=== PATIENT | female | born 1935 | race Caucasian/White ===

== ENCOUNTER 2017-09-26 19:20 | Inpatient (IN) | payer MEDICARE, MEDICAID ==
--- NOTE | 2017-09-26 20:14 | C.PDOC ---
History Of Present Illness Patient presents to the ER for a complaint of left knee pain that has been worsening for some time. Patient saw PMD same complaint who send her to the ER for evaluation of possible DVT. Denies chest pain, SOB, fever, or chills. Time Seen by Provider: 09/26/17 20:14 Chief Complaint (Nursing): Abnormal Labs History Per: Patient History/Exam Limitations: no limitations Onset/Duration Of Symptoms: Hrs Current Symptoms Are (Timing): Still Present Recent travel outside of the [place]: No Past Medical History Reviewed: Historical Data, Nursing Documentation, Vital Signs Vital Signs: Last Vital Signs Temp 98.1 F 09/26/17 19:38 Pulse 74 09/26/17 19:38 Resp 16 09/26/17 19:38 BP 145/74 09/26/17 19:38 Pulse Ox 97 09/26/17 21:53 - Medical History PMH: CHF, Emphysema, HTN, Hypercholesterolemia Surgical History: No Surg Hx Family History: States: Unknown Family Hx - Social History Hx Alcohol Use: No Hx Substance Use: No - Immunization History Hx Influenza Vaccination: Yes Hx Pneumococcal Vaccination: Yes Review Of Systems Constitutional: Negative for: Fever, Chills Cardiovascular: Negative for: Chest Pain Respiratory: Negative for: Shortness of Breath Gastrointestinal: Negative for: Nausea, Vomiting Genitourinary: Negative for: Dysuria Musculoskeletal: Positive for: Leg Pain (Left knee) Skin: Negative for: Rash Neurological: Negative for: Numbness Psych: Negative for: Anxiety Physical Exam - Physical Exam Appears: Non-toxic, No Acute Distress Skin: Warm, Dry Head: Normacephalic Eye(s): bilateral: Normal Inspection Oral Mucosa: Moist Neck: Supple Chest: Symmetrical Cardiovascular: Rhythm Regular Respiratory: No Rales, No Rhonchi, No Wheezing Back: Normal Inspection Extremity: Tenderness (Left knee to palpation), No Calf Tenderness, No Deformity , Swelling (Mild to left knee), Other (Mild crepitus felt on active/passive extension and flexion) Extremity: Right: Limited ROM To Joint (knee due to pain), Bilateral: Atraumatic Pulses: Left Femoral: Normal, Right Femoral: Normal, Left Dorsalis Pedis: Normal , Right Dorsalis Pedis: Normal Neurological/Psych: Oriented x3, Normal Speech, Normal Cognition Gait: With Assistance ED Course And Treatment - Laboratory Results Result Diagrams: 09/26/17 20:40 09/26/17 20:40 ECG: Interpreted By Me, Viewed By Me ECG Rhythm: Sinus Rhythm (74), Nonspecific Changes O2 Sat by Pulse Oximetry: 97 (room air) Pulse Ox Interpretation: Normal - Radiology CXR: Interpreted by Me, Viewed By Me CXR Interpretation: Yes: Cardiomegaly. No: Infiltrates, Fracture, Pnemothorax Progress Note: Blood work, EKG, urinalysis, and CXR ordered. Lovenox administered. Disposition Discussed With : Tutu Zhang Comment: accepted the pt on his service and took over the care at 9:55PM Doctor Will See Patient In The: Hospital Counseled Patient/Family Regarding: Studies Performed, Diagnosis - Disposition Disposition: HOSPITALIZED Disposition Time: 20:14 Condition: FAIR Forms: [facility] (Romanian) - POA Present On Arrival: Poor Glycemic Control - Clinical Impression Clinical Impression: Knee pain, right, Hyperglycemia, Ambulatory dysfunction - Scribe Statement The provider has reviewed the documentation as recorded by the Scribzo Phillips All medical record entries made by the Scribe were at my direction and personally dictated by me. I have reviewed the chart and agree that the record accurately reflects my personal performance of the history, physical exam, medical decision making, and the department course for this patient. I have also personally directed, reviewed, and agree with the discharge instructions and disposition. Decision To Admit - Pt Status Changed To: Hospital Disposition Of: Inpatient - Admit Certification Admit to Inpatient:: After my assessment, the patient will require hospitalization for at least two midnights. This is because of the severity of symptoms shown, intensity of services needed, and/or the medical risk in this patient being treated as an outpatient. - InPatient: Physician Admission Certification: I certify that this patient requires 2 or more midnights of care for the following reason:: After my assessment, the patient will require hospitalization for at least two midnights. This is because of the severity of symptoms shown, intensity of services needed, and/or the medical risk in this patient being treated as an outpatient. - . Bed Request Type: Regular Admitting Physician: Tutu Zhang Patient Diagnosis: Knee pain, right, Hyperglycemia, Ambulatory dysfunction
[2017-09-26] MEDS ORDERED: Enoxaparin 40 mg Syringe SC STA (20:28)
[2017-09-26] MEDS ORDERED: Enoxaparin 60 mg Syringe ONE (20:49)
[2017-09-26 20:51] LABS: RBC URINE 13 /hpf (0-3); URINE BACTERIA RARE (<OCC); URINE BILIRUBIN NEGATIVE (NEGATIVE); URINE BLOOD 1+ (NEGATIVE); URINE COLOR Straw (YELLOW); URINE GLUCOSE (UA) 3+ mg/dL (Normal); URINE KETONE NEGATIVE (NEGATIVE); URINE LEUKOCYTE ESTERASE NEG Leu/uL (Negative); URINE PROTEIN 3+ mg/dL (NEGATIVE); URINE UROBILINOGEN NORMAL mg/dL (0.2-1.0)
[2017-09-26 20:52] LABS: BASO # 0.1 K/uL (0.0-0.2); EOS # 0.3 K/uL (0.0-0.7); EOS % 3.6 % (0.0-4.0); HEMATOCRIT 31.8 % (34.0-47.0); LYMPH # 1.8 K/uL (1.0-4.3); LYMPH % 22.8 % (20.0-40.0); MEAN CELL VOLUME 80.5 fL (81.0-99.0); MEAN CORPUSCULAR HEMOGLOBIN 25.9 pg (27.0-31.0); MEAN CORPUSCULAR HGB CONC 32.2 g/dL (33.0-37.0); MEAN PLATELET VOLUME 7.9 fL (7.2-11.7); MONO # 0.5 K/uL (0.0-0.8); MONO % 6.3 % (0.0-10.0); NRBC % 0.1 % (0.0-2.0); RED CELL DISTRIBUTION WIDTH 13.3 % (11.5-14.5)
[2017-09-26 20:55] LABS: CHLORIDE 105 mmol/L (98-107)
[2017-09-26 20:56] LABS: POTASSIUM 5.4 mmol/L (3.6-5.2); SODIUM 135 mmol/L (132-148)
[2017-09-26 20:57] LABS: INR 0.9
[2017-09-26 20:57] LABS: VENOUS BLOOD GAS BASE EXCESS -0.5 mmol/L (0.0-2.0); VENOUS BLOOD GAS PCO2 51 mmHg (40-60); VENOUS BLOOD PH 7.32 (7.32-7.43)
[2017-09-26 20:58] LABS: ALB/GLOB RATIO 1.6 (1.0-2.1); ALKALINE PHOSPHATASE 75 U/L (38-126); ALT/SGPT 29 U/L (9-52); AST/SGOT 18 U/L (14-36); BILIRUBIN,TOTAL 0.5 mg/dL (0.2-1.3); BLOOD UREA NITROGEN 24 mg/dL (7-17); CARBON DIOXIDE 23 mmol/L (22-30); GFR AFRICAN-AMERICAN 57; GLUCOSE,RANDOM 226 mg/dL (65-105); TOTAL PROTEIN 6.4 g/dL (6.3-8.3)
[2017-09-26 20:59] LABS: CALCIUM 8.5 mg/dl (8.6-10.4); URIC ACID 5.9 mg/dL (2.2-7.5)
[2017-09-26] MEDS ORDERED: INSULIN DETEMIR 20 UNIT SC SCH (22:15)
[2017-09-26] MEDS: Insulin Detemir 100 units/ml Vial (Levemir) SC SCH (23:43)
--- NOTE | 2017-09-27 07:09 | RAD ---
PROCEDURE: CHEST RADIOGRAPH, 1 VIEW HISTORY: SOB COMPARISON: None available. FINDINGS: LUNGS: No infiltrate identified bilaterally. PLEURA: No pneumothorax or pleural fluid seen. CARDIOVASCULAR: Cardiomegaly is appear without definite pulmonary vascular derangement. OSSEOUS STRUCTURES: No significant abnormalities. VISUALIZED UPPER ABDOMEN: Normal. OTHER FINDINGS: None. IMPRESSION: Cardiomegaly. No definite pulmonary vascular derangement identified. No infiltrate bilaterally.
[2017-09-27 08:30] LABS: BASO # 0.1 K/uL (0.0-0.2); EOS # 0.4 K/uL (0.0-0.7); EOS % 5.2 % (0.0-4.0); HEMATOCRIT 29.4 % (34.0-47.0); LYMPH # 1.8 K/uL (1.0-4.3); LYMPH % 26.3 % (20.0-40.0); MEAN CELL VOLUME 80.8 fL (81.0-99.0); MEAN CORPUSCULAR HGB CONC 32.2 g/dL (33.0-37.0); MEAN PLATELET VOLUME 8.1 fL (7.2-11.7); MONO # 0.5 K/uL (0.0-0.8); MONO % 7.4 % (0.0-10.0); RED CELL DISTRIBUTION WIDTH 13.2 % (11.5-14.5); WHITE BLOOD COUNT 6.8 K/uL (4.8-10.8)
[2017-09-27 08:46] LABS: CHLORIDE 107 mmol/L (98-107); SODIUM 138 mmol/L (132-148)
[2017-09-27 08:47] LABS: POTASSIUM 4.7 mmol/L (3.6-5.2)
[2017-09-27 08:48] LABS: GFR AFRICAN-AMERICAN > 60
[2017-09-27 08:49] LABS: ALB/GLOB RATIO 1.5 (1.0-2.1); ALKALINE PHOSPHATASE 67 U/L (38-126); ALT/SGPT 27 U/L (9-52); AST/SGOT 16 U/L (14-36); BILIRUBIN,TOTAL 0.5 mg/dL (0.2-1.3); BLOOD UREA NITROGEN 22 mg/dL (7-17); CARBON DIOXIDE 24 mmol/L (22-30); GLUCOSE,RANDOM 74 mg/dL (65-105); PHOSPHOROUS 3.8 mg/dL (2.5-4.5); TOTAL PROTEIN 5.7 g/dL (6.3-8.3)
[2017-09-27 08:50] LABS: CALCIUM 8.4 mg/dl (8.6-10.4); MAGNESIUM 1.1 mg/dL (1.6-2.3)
--- NOTE | 2017-09-27 08:54 | CP.PCM.PN ---
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 The patient states that the pain started 10 days ago. The pain is located in her knee and radiates down to her foot. Pain is constant, rated 10/10, and feels like pins and needles. The patient also noticed swelling in her left leg associated with the onset of the pain. She denies trauma or history of fall. This is the first time the patient has experienced this pain. She went to see her PMD Dr Zhang who gave her medication for the swelling. The patient states that the pain and swelling did not improve so she came to the ED. The patient was seen and examined today. Patient is able to move her leg without difficulty and is ambulating with a cane. Patient states the pain is worse with ambulation. Denies chest pain, palpitations, recent surgery, shortness of breath, fever, headache, dizziness, focal weakness, abdominal pain, and urinary symptoms. PMD: Vicente PMHx: HTN, DM, emphysema, HLD and CHF Meds: Coreg 25mg PO BID, Omeprazole 40mg PO daily, Albuterol 2puff INH q6h prn, Lipitor 20mg PO daily, Glipizide 10mg PO BID, Levemir 20u SC HS, Metformin 1000mg PO BID, Diovan 40mg PO daily Surgical Hx: Appendectomy Social Hx: Denies EtOH, tobacco, and drug use. Lives with son. Walks with cane. Allergies: NKDA Objective - Vital Signs/Intake and Output Vital Signs (last 24 hours): Temp Pulse Resp BP Pulse Ox 98 F 70 20 154/70 H 96 09/27/17 07:00 09/27/17 07:00 09/27/17 07:00 09/27/17 07:00 09/27/17 07:00 Intake and Output: 09/27/17 09/27/17 06:59 18:59 Intake Total 240 Balance 240 - Medications Medications: Current Medications Albuterol (Ventolin Hfa 90 Mcg/Actuation (8 G)) 2 puff IH RQ6 PRN PRN Reason: sob Aspirin (Aspirin) 325 mg PO DAILY [facility] Enoxaparin Sodium (Lovenox) 60 mg SC Q12 [facility] Glipizide (Glucotrol) 10 mg PO BID [facility] Insulin Detemir (Levemir) 20 unit SC HS [facility] Last Admin: 09/26/17 23:43 Dose: 20 unit Latanoprost (Xalatan Opht) 0 ml OU HS [facility] Losartan Potassium (Cozaar) 25 mg PO DAILY [facility] Metformin HCl (Glucophage) 1,000 mg PO BID [facility] Oxycodone/Acetaminophen (Percocet 5/325 Mg Tab) 1 tab PO Q4H PRN PRN Reason: Pain, moderate (4-7) Stop: 09/29/17 22:07 Pantoprazole Sodium (Protonix Ec Tab) 40 mg PO DAILY [facility] Rosuvastatin Calcium (Crestor) 10 mg PO HS [facility] - Labs Labs: 09/27/17 08:19 09/26/17 20:40 PT 10.5 SECONDS (9.7-12.2) 09/26/17 20:40 INR 0.9 09/26/17 20:40 APTT 32 SECONDS (21-34) 09/26/17 20:40 - Constitutional Appears: Non-toxic, No Acute Distress - Head Exam Head Exam: ATRAUMATIC, NORMOCEPHALIC - Eye Exam Eye Exam: EOMI, Normal appearance, PERRL Pupil Exam: NORMAL ACCOMODATION - ENT Exam ENT Exam: Mucous Membranes Moist, Normal Exam - Neck Exam Neck Exam: Normal Inspection - Respiratory Exam Respiratory Exam: Clear to Ausculation Bilateral, NORMAL BREATHING PATTERN. absent: Rhonchi, Wheezes, Respiratory Distress - Cardiovascular Exam Cardiovascular Exam: REGULAR RHYTHM, +S1, +S2 - GI/Abdominal Exam GI & Abdominal Exam: Soft, Normal Bowel Sounds. absent: Firm, Guarding, Tenderness - Extremities Exam Extremities Exam: Normal Inspection (Right leg ) Additional comments: Left leg- non-pitting edema to knee, soft tissue swelling and tenderness to palpation of anterior knee negative Anterior drawer test/Posterior drawer test negative Fe's test - Neurological Exam Neurological Exam: Alert, Awake, CN II-XII Intact, Oriented x3 Additional comments: Unsteady gait with cane - Psychiatric Exam Psychiatric exam: Normal Affect, Normal Mood - Skin Skin Exam: Dry, Intact, Normal Color, Warm Assessment and Plan - Assessment and Plan (Free Text) Assessment: 1. Left leg pain Surgery consulted Dr Brown for lower extremity pain- help appreciated Start Lovenox 60mg SC q12h Percocet 10/325 1 tab PO q4h prn pain f/u arterial PVR/SEG of lower extremity f/u venous doppler to rule out DVT 2. CAD f/u CT angiogram of abdomen ASA 325mg PO daily Crestor 10mg PO HS f/u fasting lipid panel 3. DM Accuchecks ISS Levemir 20u SC HS Glipizide 10mg PO BID Metformin 1000mg PO BID f/u HgA1C 4. HTN Monitor vitals q4h Cont home meds Cozaar 25mg PO daily 5. Emphysema Home med Albuterol 2puff INH q6h prn SOB well controlled at this time 6. Prophylactic measure Protonix 40mg PO daily SCD contraindicated due to leg pain Lovenox 60mg SC q12h management per Dr Zhang
[2017-09-27] MEDS: Enoxaparin 60 mg Syringe SC SCH ×2 (09:05→21:50)
[2017-09-27] MEDS: Pantoprazole 40 mg EC Tab PO SCH (09:05)
[2017-09-27] MEDS ORDERED: VALSARTAN 40 MG PO SCH (10:00)
[2017-09-27] MEDS ORDERED: Home Med 1 UNIT (Metformin [Glucophage] 1,000 MG) PO SCH (10:00)
[2017-09-27] MEDS ORDERED: Home Med 1 UNIT (Atorvastatin [Lipitor] 20 MG) PO SCH (10:00)
[2017-09-27] MEDS ORDERED: Iodixanol 320 mg/ml 150 ml Bottle IV ONE (10:25)
--- NOTE | 2017-09-27 12:38 | VASCLAB ---
PROCEDURE: Left Lower Extremity Venous Duplex Exam. HISTORY: swelling/pain PRIORS: None. TECHNIQUE: Left common femoral, femoral, popliteal and posterior tibial, peroneal and great saphenous veins were evaluated. Flow was assessed with color Doppler, compressibility, assessment of phasic flow and augmentation response. Report prepared by ARSLAN Diaz FINDINGS: LEFT: 1. Common Femoral Vein: 1.1. Compressibility - Fully compressible: Thrombus - None : Flow - Phasic: Augmentation -Normal: Reflux - None. 2. Femoral Vein: 2.1. Compressibility - Fully compressible: Thrombus - None: Flow - Phasic: Augmentation -Normal: Reflux - None. 3. Popliteal Vein: 3.1. Compressibility - Fully compressible: Thrombus - None: Flow - Phasic: Augmentation -Normal: Reflux - None. 4. Posterior Tibial Vein: 4.1. Compressibility - Fully compressible: Thrombus - None: Flow - Phasic: Augmentation -Normal: Reflux - None. 5. Peroneal Vein: 5.1. Compressibility - Fully compressible: Thrombus - None: Flow - Phasic: Augmentation -Normal: Reflux - None. 6. Great Saphenous Vein: 6.1. Compressibility - Fully compressible: Thrombus - None: Flow - Phasic: Augmentation - Normal: Reflux - None. OTHER FINDINGS: IMPRESSION: No evidence of deep or superficial vein thrombosis of the left lower extremity with excellent venous flow. Normal valve function noted of the left side. Normal venous flow noted in the right common femoral vein.
--- NOTE | 2017-09-27 12:47 | CP.PCM.CON ---
History of Present Illness - History of Present Illness History of Present Illness: Vascular Surgery consult for Dr. Brown Reason for consult: left lower extremity pain 82 year old [place]ian female with PMHx of DM, HTN, HLD presents with constant severe bilateral leg pain starting suddenly 10 days ago. 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 The pain is described as aching and extends from the ankles to the knees. Pain is rated 10/10, and occurs every 5-10 minutes. Symptoms worse with walking and improved with massaging the knees. Patient states she has never had this pain before. Patient states she normally ambulates slowly with a 4-point cane at home. Denies recent travel, trauma, or illness. Denies fever, chills. PMHx: DM, HTN, HLD SurgHx: none Allergies: none FamilyHx: 3 children with DM SocialHx: lives with son; denies tobacco/alcohol/illicit drug use Review of Systems - Constitutional Constitutional: absent: Chills, Fever, Frequent Falls - EENT Eyes: absent: Change in Vision, Loss of Vision Ears: absent: Ear Pain Nose/Mouth/Throat: absent: Mouth Pain, Sore Throat, Facial Pain, Neck Pain - Breasts Breasts: absent: Mass, Pain - Cardiovascular Cardiovascular: Dyspnea, Dyspnea on Exertion. absent: Chest Pain, Chest Pain at Rest, Chest Pain with Activity - Respiratory Respiratory: Dyspnea, Dyspnea on Exertion. absent: Cough, Hemoptysis - Gastrointestinal Gastrointestinal: absent: Abdominal Pain, Change in Stool Character, Constipation, Diarrhea, Nausea, Vomiting - Genitourinary Genitourinary: absent: Change in Urinary Stream, Difficulty Urinating, Dysuria, Urinary Incontinence - Musculoskeletal Musculoskeletal: absent: Back Pain, Numbness, Tingling - Integumentary Integumentary: absent: Changing Lesions, New Lesions - Neurological Neurological: absent: Dizziness, Numbness, Tingling, Tremor, Vertigo, Weakness - Psychiatric Psychiatric: absent: Homicidal Ideation, Suicidal Ideation - Endocrine Endocrine: absent: Fatigue, Palpitations, Polydipsia, Polyphagia, Polyuria - Hematologic/Lymphatic Hematologic: absent: Easy Bleeding, Easy Bruising, Lymphadenopathy Past Patient History - Past Medical History & Family History Past Medical History?: Yes - Past Social History Smoking Status: Never Smoked - CARDIAC Hx Cardiac Disorders: Yes Hx Congestive Heart Failure: Yes Hx Hypercholesterolemia: Yes Hx Hypertension: Yes - PULMONARY Hx Respiratory Disorders: Yes Hx Emphysema: Yes - NEUROLOGICAL Hx Neurological Disorder: No - HEENT Hx HEENT Problems: Yes Hx Cataracts: Yes (had surgery) - RENAL Hx Chronic Kidney Disease: No - ENDOCRINE/METABOLIC Hx Endocrine Disorders: Yes Hx Diabetes Mellitus Type 2: Yes - HEMATOLOGICAL/ONCOLOGICAL Hx Blood Disorders: No - INTEGUMENTARY Hx Dermatological Problems: No - MUSCULOSKELETAL/RHEUMATOLOGICAL Hx Musculoskeletal Disorders: No Hx Falls: No - GASTROINTESTINAL Hx Gastrointestinal Disorders: No - GENITOURINARY/GYNECOLOGICAL Hx Genitourinary Disorders: No - PSYCHIATRIC Hx Psychophysiologic Disorder: No Hx Substance Use: No - SURGICAL HISTORY Hx Surgeries: Yes Other/Comment: cataract surgery - ANESTHESIA Hx Anesthesia: Yes Hx Anesthesia Reactions: No Hx Malignant Hyperthermia: No Meds Allergies/Adverse Reactions: Allergies Allergy/AdvReac Type Severity Reaction Status Date / Time No Known Allergies Allergy Verified 09/26/17 19:48 - Medications Medications: Current Medications Albuterol (Ventolin Hfa 90 Mcg/Actuation (8 G)) 2 puff IH RQ6 PRN PRN Reason: sob Aspirin (Aspirin) 325 mg PO DAILY [facility] Last Admin: 09/27/17 09:05 Dose: 325 mg Enoxaparin Sodium (Lovenox) 60 mg SC Q12 [facility] Last Admin: 09/27/17 09:05 Dose: 60 mg Glipizide (Glucotrol) 10 mg PO BID [facility] Last Admin: 09/27/17 09:05 Dose: 10 mg Insulin Detemir (Levemir) 20 unit SC [facility] Last Admin: 09/26/17 23:43 Dose: 20 unit Latanoprost (Xalatan Opht) 0 ml OU HS [facility] Losartan Potassium (Cozaar) 25 mg PO DAILY [facility] Last Admin: 09/27/17 09:05 Dose: 25 mg Metformin HCl (Glucophage) 1,000 mg PO BID [facility] Last Admin: 09/27/17 09:05 Dose: 1,000 mg Oxycodone/Acetaminophen (Percocet 5/325 Mg Tab) 1 tab PO Q4H PRN PRN Reason: Pain, moderate (4-7) Stop: 09/29/17 22:07 Pantoprazole Sodium (Protonix Ec Tab) 40 mg PO DAILY [facility] Last Admin: 09/27/17 09:05 Dose: 40 mg Rosuvastatin Calcium (Crestor) 10 mg PO HS [facility] Physical Exam - Constitutional Appears: No Acute Distress - Head Exam Head Exam: ATRAUMATIC, NORMAL INSPECTION, NORMOCEPHALIC - Eye Exam Eye Exam: EOMI, Normal appearance - ENT Exam ENT Exam: Mucous Membranes Moist - Neck Exam Neck exam: Positive for: Full Rom - Respiratory Exam Respiratory Exam: NORMAL BREATHING PATTERN. absent: Accessory Muscle Use, Respiratory Distress - Cardiovascular Exam Cardiovascular Exam: REGULAR RHYTHM - GI/Abdominal Exam GI & Abdominal Exam: Soft. absent: Distended, Firm, Mass, Tenderness Additional comments: oblique scar in RLQ from previous appendectomy - Extremities Exam Extremities exam: Negative for: tenderness Additional comments: b/l DP/PT/popliteal pulses found via doppler no skin changes, or ulcers present - Back Exam Back exam: absent: CVA tenderness (L), CVA tenderness (R) - Neurological Exam Neurological exam: Alert, Oriented x3 - Psychiatric Exam Psychiatric exam: Normal Affect, Normal Mood - Skin Skin Exam: Dry, Intact, Normal Color, Warm Results - Vital Signs Recent Vital Signs: Last Vital Signs Temp 98 F 09/27/17 07:00 Pulse 70 09/27/17 07:00 Resp 20 09/27/17 07:00 BP 154/70 H 09/27/17 07:00 Pulse Ox 96 09/27/17 07:00 - Labs Result Diagrams: 09/27/17 08:19 09/27/17 08:19 Labs: Laboratory Results - last 24 hr 09/26/17 09/26/17 09/26/17 20:40 20:40 20:40 WBC 8.0 RBC 3.95 Hgb 10.2 L Hct 31.8 L MCV 80.5 L MCH 25.9 L MCHC 32.2 L RDW 13.3 Plt Count 235 MPV 7.9 Neut % (Auto) 66.3 Lymph % (Auto) 22.8 [place] % (Auto) 6.3 Eos % (Auto) 3.6 Baso % (Auto) 1.0 Neut # 5.3 Lymph # 1.8 [place] # 0.5 Eos # 0.3 Baso # 0.1 PT 10.5 INR 0.9 APTT 32 pO2 VBG pH VBG pCO2 VBG HCO3 VBG Total CO2 VBG O2 Sat (Calc) VBG Base Excess VBG Potassium Glucose Lactate Sodium Potassium Chloride Carbon Dioxide Anion Gap BUN Creatinine Est GFR ( Amer) Est GFR (Non-Af Amer) POC Glucose (mg/dL) Random Glucose Uric Acid Calcium Phosphorus Magnesium Total Bilirubin AST ALT Alkaline Phosphatase Total Protein Albumin Globulin Albumin/Globulin Ratio Venous Blood Potassium Urine Color Straw Urine Clarity Clear Urine pH 6.0 Ur Specific [place] 1.014 Urine Protein 3+ H Urine Glucose (UA) 3+ H Urine Ketones Negative Urine Blood 1+ H Urine Nitrate Negative Urine Bilirubin Negative Urine Urobilinogen Normal Ur Leukocyte Esterase Neg Urine RBC (Auto) 13 H Urine Bacteria Rare Serum Ketones 09/26/17 09/26/17 09/26/17 20:40 20:50 23:08 WBC RBC Hgb Hct MCV MCH MCHC RDW Plt Count MPV Neut % (Auto) Lymph % (Auto) [place] % (Auto) Eos % (Auto) Baso % (Auto) Neut # Lymph # [place] # Eos # Baso # PT INR APTT pO2 24 L VBG pH 7.32 VBG pCO2 51 VBG HCO3 22.9 VBG Total CO2 27.9 VBG O2 Sat (Calc) 46.6 VBG Base Excess -0.5 L VBG Potassium 5.6 H Glucose 258 H Lactate 1.4 Sodium 135 141.0 Potassium 5.4 H Chloride 105 113.0 H Carbon Dioxide 23 Anion Gap 13 BUN 24 H Creatinine 1.1 Est GFR ( Amer) 57 Est GFR (Non-Af Amer) 47 POC Glucose (mg/dL) 245 H Random Glucose 226 H Uric Acid 5.9 Calcium 8.5 L Phosphorus Magnesium Total Bilirubin 0.5 AST 18 ALT 29 Alkaline Phosphatase 75 Total Protein 6.4 Albumin 3.9 Globulin 2.5 Albumin/Globulin Ratio 1.6 Venous Blood Potassium 5.6 H Urine Color Urine Clarity Urine pH Ur Specific [place] Urine Protein Urine Glucose (UA) Urine Ketones Urine Blood Urine Nitrate Urine Bilirubin Urine Urobilinogen Ur Leukocyte Esterase Urine RBC (Auto) Urine Bacteria Serum Ketones Negative 09/27/17 09/27/17 09/27/17 05:57 08:19 08:19 WBC 6.8 RBC 3.64 L Hgb 9.5 L Hct 29.4 L MCV 80.8 L MCH 26.0 L MCHC 32.2 L RDW 13.2 Plt Count 235 MPV 8.1 Neut % (Auto) 60.1 Lymph % (Auto) 26.3 [place] % (Auto) 7.4 Eos % (Auto) 5.2 H Baso % (Auto) 1.0 Neut # 4.1 Lymph # 1.8 [place] # 0.5 Eos # 0.4 Baso # 0.1 PT INR APTT pO2 VBG pH VBG pCO2 VBG HCO3 VBG Total CO2 VBG O2 Sat (Calc) VBG Base Excess VBG Potassium Glucose Lactate Sodium 138 Potassium 4.7 Chloride 107 Carbon Dioxide 24 Anion Gap 12 BUN 22 H Creatinine 1.0 Est GFR ( Amer) > 60 Est GFR (Non-Af Amer) 53 POC Glucose (mg/dL) 81 Random Glucose 74 Uric Acid Calcium 8.4 L Phosphorus 3.8 Magnesium 1.1 L Total Bilirubin 0.5 AST 16 ALT 27 Alkaline Phosphatase 67 Total Protein 5.7 L Albumin 3.4 L Globulin 2.3 Albumin/Globulin Ratio 1.5 Venous Blood Potassium Urine Color Urine Clarity Urine pH Ur Specific [place] Urine Protein Urine Glucose (UA) Urine Ketones Urine Blood Urine Nitrate Urine Bilirubin Urine Urobilinogen Ur Leukocyte Esterase Urine RBC (Auto) Urine Bacteria Serum Ketones Assessment & Plan - Assessment and Plan (Free Text) Plan: 82 F with left lower extremity pain. CTA findings shows occlusion of bilateral posterior/anterior tibial arteries, severe stenosis of bilateral SFA, and stenosis of popliteal arteries bilaterally -f/u PVR -Possible angiogram -Analgesics PRN -Management as per primary -Will Discuss with Dr. Stephanie Long PGY1
--- NOTE | 2017-09-27 12:53 | RAD ---
PROCEDURE: Left Knee Radiographs. HISTORY: Pain. COMPARISON: None. FINDINGS: BONES: No evidence of acute displaced fracture nor dislocation. The osseous structures appear intact. No obvious cortical destructive changes. JOINTS: Questionable mild lateral joint space narrowing JOINT EFFUSION: No significant joint effusion. OTHER FINDINGS: Vascular calcifications are present. IMPRESSION: No evidence acute displaced fracture nor dislocation.
[2017-09-27] MEDS: Oxycodone/Acetaminophen 5/325 mg Tab PO PRN (12:56)
--- NOTE | 2017-09-27 13:32 | CT ---
PROCEDURE: CT Angiography Abdomen, Pelvis and Lower Extremity with Contrast HISTORY: Claudication COMPARISON: None. TECHNIQUE: Technique: CT angiography of the abdomen, pelvis and bilateral lower extremities performed in the arterial phase of enhancement. Coronal and sagittal reformats, and well as rotating MIP images of the vessels generated at the workstation. Intravenous contrast dose: 150 milliliters Visipaque 320 Radiation dose: Total exam DLP = 1371.93 MGy-cm. This CT exam was performed using one or more of the following dose reduction techniques: Automated exposure control, adjustment of the mA and/or kV according to patient size, and/or use of iterative reconstruction technique. FINDINGS: CT ANGIOGRAPHY: ABDOMINAL AORTA:: The suprarenal aorta measures 2.2 centimeters. Infrarenal aorta measures 1.2 centimeters. There is moderate calcific plaque in the infrarenal aorta. MAJOR AORTIC BRANCHES: Celiac [place]: Unremarkable. Superior mesenteric artery: Unremarkable. Inferior mesenteric artery: Unremarkable. Renal arteries: Unremarkable. PELVIC ARTERIES: Right Common Iliac: Unremarkable. Right External Iliac: Unremarkable. Right Internal Iliac: Unremarkable. Left Common Iliac: Unremarkable. Left External Iliac: Unremarkable. Left Internal Iliac: Unremarkable. RIGHT LOWER EXTREMITY ARTERIES: Right Common Femoral: Unremarkable. Right Superficial Femoral: Multiple short segment severe stenosis, 80 percent, of the proximal, mid and distal SFA. Right Profunda Femoris: Unremarkable. Right Popliteal:Moderate stenosis of the popliteal artery in the mid segment. Right Anterior Tibial: Occluded Right Tibioperoneal Trunk: Unremarkable. Right Posterior Tibial: Calcified. Appears occluded. Right Peroneal: Unremarkable. Right dorsalis pedis : Unremarkable. LEFT LOWER EXTREMITY ARTERIES: Left Common Femoral: Unremarkable. Left Superficial Femoral: Severe stenosis of the mid and distal SFA, 85-90 percent. Left Profunda Femoris: Unremarkable. Left Popliteal: Mild stenosis of popliteal artery. Left Anterior Tibial: Occluded Left Tibioperoneal Trunk: Unremarkable. Left Posterior Tibial: Occluded Left Peroneal: Unremarkable. Left Dorsalis pedis: Unremarkable. NON-ANGIOGRAPHIC ASPECT OF THE EXAM: LOWER THORAX: Unremarkable. LIVER: Unremarkable. No gross lesion or ductal dilatation. GALLBLADDER AND BILE DUCTS: Unremarkable. PANCREAS: Unremarkable. No gross lesion or ductal dilatation. SPLEEN: Unremarkable. ADRENALS: Unremarkable. No mass. KIDNEYS AND URETERS: Unremarkable. No hydronephrosis. No solid mass. STOMACH AND BOWEL: Unremarkable. No obstruction. No gross mural thickening. APPENDIX: Normal appendix. PERITONEUM: Unremarkable. No free fluid. No free air. LYMPH NODES: Unremarkable. No enlarged lymph nodes. BLADDER: Unremarkable. REPRODUCTIVE: Unremarkable. BONES: No acute fracture. OTHER FINDINGS: Moderate pericardial effusion IMPRESSION: CT ANGIOGRAM OF THE ABDOMEN/PELVIS: 1. Moderate plaque in the infrarenal aorta which is otherwise unremarkable. 2. Pelvic arteries unremarkable. RIGHT LOWER EXTREMITY CT ANGIOGRAM: 1. Common femoral artery profunda femoral artery normal. 2. There are multiple short segment areas of severe stenosis in the proximal, mid, and distal SFA. 3. Moderate stenosis of the popliteal artery. 4. Runoff shows a patent peroneal artery. The posterior tibial artery is heavily calcified and believed to be occluded. The anterior tibial is occluded. LEFT LOWER EXTREMITY CT ANGIOGRAM: 1. Common femoral artery and profunda femoral artery are normal. 2. Severe stenosis of the mid and distal SFA. 3. Mild stenosis of popliteal artery. 4. Runoff shows patent peroneal artery. The anterior tibial artery is occluded. The posterior tibial artery is occluded. Recommend angiogram with revascularization.
[2017-09-27] MEDS: Insulin Detemir 100 units/ml Vial (Levemir) SC SCH (21:48)
[2017-09-27] MEDS: Latanoprost 2.5 ml Opht Soln OU SCH (21:51)
[2017-09-27] MEDS ORDERED: TRAVOPROST OU SCH (22:00)
[2017-09-28 06:51] LABS: CHOLESTEROL 120 mg/dL (0-199)
[2017-09-28] MEDS ORDERED: Dextrose 50% SYRINGE Inj (50 ml) IV PRN (07:07)
--- NOTE | 2017-09-28 08:11 | CP.PCM.PN ---
Subjective - Date & Time of Evaluation Date of Evaluation: 09/28/17 Time of Evaluation: 07:00 - Subjective Subjective: Vascular Surgery Note for Dr. Brown Patient seen and examined at bedside. No acute event overnight. Patient states pain is controlled with medications. Patient is tolerating diet and having BMs. Patient has no complaints. Objective - Vital Signs/Intake and Output Vital Signs (last 24 hours): Temp Pulse Resp BP Pulse Ox 99.0 F 83 20 146/66 95 09/28/17 04:00 09/28/17 04:03 09/28/17 04:00 09/28/17 04:00 09/28/17 04:00 Intake and Output: 09/28/17 09/28/17 06:59 18:59 Intake Total 320 Balance 320 - Medications Medications: Current Medications Albuterol (Ventolin Hfa 90 Mcg/Actuation (8 G)) 2 puff IH RQ6 PRN PRN Reason: sob Aspirin (Aspirin) 325 mg PO DAILY [facility] Last Admin: 09/27/17 09:05 Dose: 325 mg Dextrose (Dextrose 50% Inj) 0 ml IV STAT PRN; Protocol PRN Reason: Hypoglycemia Protocol Dextrose (Glutose 15) 0 gm PO ONCE PRN; Protocol PRN Reason: Hypoglycemia Protocol Enoxaparin Sodium (Lovenox) 60 mg SC Q12 [facility] Last Admin: 09/27/17 21:50 Dose: 60 mg Glipizide (Glucotrol) 10 mg PO BID [facility] Last Admin: 09/27/17 17:54 Dose: Not Given Dextrose (Dextrose 5% In Water 1000 Ml) 1,000 mls @ 0 mls/hr IV .Q0M PRN; Protocol; Per Protocol PRN Reason: Hypoglycemia Protocol Insulin Detemir (Levemir) 20 unit SC HS [facility] Last Admin: 09/27/17 21:48 Dose: 20 unit Insulin Human Regular (Novolin R) 0 unit SC ACHS [facility] PRN Reason: Protocol Latanoprost (Xalatan Opht) 0 ml OU HS [facility] Last Admin: 09/27/17 21:51 Dose: 1 ml Losartan Potassium (Cozaar) 25 mg PO DAILY [facility] Last Admin: 09/27/17 09:05 Dose: 25 mg Metformin HCl (Glucophage) 1,000 mg PO BID [facility] Last Admin: 09/27/17 09:05 Dose: 1,000 mg Oxycodone/Acetaminophen (Percocet 5/325 Mg Tab) 1 tab PO Q4H PRN PRN Reason: Pain, moderate (4-7) Stop: 09/29/17 22:07 Last Admin: 09/27/17 12:56 Dose: 1 tab Pantoprazole Sodium (Protonix Ec Tab) 40 mg PO DAILY [facility] Last Admin: 09/27/17 09:05 Dose: 40 mg Rosuvastatin Calcium (Crestor) 10 mg PO HS [facility] Last Admin: 09/27/17 21:51 Dose: 10 mg - Labs Labs: 09/27/17 08:19 09/27/17 08:19 PT 10.5 SECONDS (9.7-12.2) 09/26/17 20:40 INR 0.9 09/26/17 20:40 APTT 32 SECONDS (21-34) 09/26/17 20:40 - Constitutional Appears: No Acute Distress - Head Exam Head Exam: ATRAUMATIC, NORMOCEPHALIC - ENT Exam ENT Exam: Mucous Membranes Moist - Respiratory Exam Respiratory Exam: NORMAL BREATHING PATTERN - Cardiovascular Exam Cardiovascular Exam: REGULAR RHYTHM - GI/Abdominal Exam GI & Abdominal Exam: Soft. absent: Tenderness Additional comments: oblique scar in RLQ from previous appendectomy - Extremities Exam Extremities Exam: absent: Tenderness Additional comments: b/l DP/PT/popliteal pulses found via doppler no skin changes, or ulcers present - Neurological Exam Neurological Exam: Alert, Awake - Psychiatric Exam Psychiatric exam: Normal Affect, Normal Mood - Skin Skin Exam: Dry, Intact, Normal Color, Warm Assessment and Plan - Assessment and Plan (Free Text) Plan: 82 F with left lower extremity pain. CTA findings shows occlusion of bilateral posterior/anterior tibial arteries, severe stenosis of bilateral SFA, and stenosis of popliteal arteries bilaterally -f/u PVR -Possible angiogram -Analgesics PRN -Management as per primary -Will Discuss with Dr. Stephanie Long PGY1
[2017-09-28] MEDS: (Novolin R) Insulin Human Regular 100 units/ml vial SC SCH ×4 (08:39→21:25)
--- NOTE | 2017-09-28 08:50 | HP ---
HISTORY OF PRESENT ILLNESS: An 82-year-old female with chief complaint of severe left leg pain in one week duration. It extends from the thigh down to the mid calf. The pain at this time is severe, not responded to pain medications. The patient's arterial Doppler showed some monophasic flow. The patient is a nonsmoker and nondrinker. PHYSICAL EXAMINATION GENERAL: The patient is awake, alert and oriented. VITAL SIGNS: Temperature 98 and pulse 90. HEENT: Within normal limits. NECK: Supple. CHEST: Symmetrical. HEART: Regular. ABDOMEN: Soft. EXTREMITIES: there is tenderness over the left thigh, mid calf. IMPRESSION: The patient suffers from peripheral vascular disease, rule out radiculopathy. The patient needs bedrest and supportive care. Tutu Zhang MD
[2017-09-28] MEDS: Pantoprazole 40 mg EC Tab PO SCH (09:30)
--- NOTE | 2017-09-28 11:09 | CP.PCM.PN ---
Subjective - Date & Time of Evaluation Date of Evaluation: 09/28/17 Time of Evaluation: 11:00 - Subjective Subjective: Progress note. Attending: Dr. Zhang Pt seen and examined at bedside. NO acute distress. No events overnight. No fevers, chills, vomiting, diarrhea, chest pain, shortness of breath. No complaints. Objective - Vital Signs/Intake and Output Vital Signs (last 24 hours): Temp Pulse Resp BP Pulse Ox 98.2 F 88 18 122/64 96 09/28/17 08:13 09/28/17 08:13 09/28/17 08:13 09/28/17 08:13 09/28/17 08:13 Intake and Output: 09/28/17 09/28/17 06:59 18:59 Intake Total 320 Balance 320 - Medications Medications: Current Medications Albuterol (Ventolin Hfa 90 Mcg/Actuation (8 G)) 2 puff IH RQ6 PRN PRN Reason: sob Aspirin (Aspirin) 325 mg PO DAILY [facility] Last Admin: 09/28/17 09:30 Dose: 325 mg Dextrose (Dextrose 50% Inj) 0 ml IV STAT PRN; Protocol PRN Reason: Hypoglycemia Protocol Dextrose (Glutose 15) 0 gm PO ONCE PRN; Protocol PRN Reason: Hypoglycemia Protocol Enoxaparin Sodium (Lovenox) 60 mg SC Q12 [facility] Last Admin: 09/27/17 21:50 Dose: 60 mg Glipizide (Glucotrol) 10 mg PO BID [facility] Last Admin: 09/28/17 09:30 Dose: 10 mg Dextrose (Dextrose 5% In Water 1000 Ml) 1,000 mls @ 0 mls/hr IV .Q0M PRN; Protocol; Per Protocol PRN Reason: Hypoglycemia Protocol Insulin Detemir (Levemir) 20 unit SC HS [facility] Last Admin: 09/27/17 21:48 Dose: 20 unit Insulin Human Regular (Novolin R) 0 unit SC ACHS [facility] PRN Reason: Protocol Last Admin: 09/28/17 08:39 Dose: 1 unit Latanoprost (Xalatan Opht) 0 ml OU HS [facility] Last Admin: 09/27/17 21:51 Dose: 1 ml Losartan Potassium (Cozaar) 25 mg PO DAILY [facility] Last Admin: 09/28/17 09:30 Dose: 25 mg Metformin HCl (Glucophage) 1,000 mg PO BID [facility] Last Admin: 09/27/17 09:05 Dose: 1,000 mg Oxycodone/Acetaminophen (Percocet 5/325 Mg Tab) 1 tab PO Q4H PRN PRN Reason: Pain, moderate (4-7) Stop: 09/29/17 22:07 Last Admin: 09/27/17 12:56 Dose: 1 tab Pantoprazole Sodium (Protonix Ec Tab) 40 mg PO DAILY [facility] Last Admin: 09/28/17 09:30 Dose: 40 mg Rosuvastatin Calcium (Crestor) 10 mg PO HS [facility] Last Admin: 09/27/17 21:51 Dose: 10 mg - Labs Labs: 09/27/17 08:19 09/27/17 08:19 PT 10.5 SECONDS (9.7-12.2) 09/26/17 20:40 INR 0.9 09/26/17 20:40 APTT 32 SECONDS (21-34) 09/26/17 20:40 - Constitutional Appears: Non-toxic, No Acute Distress - Head Exam Head Exam: ATRAUMATIC, NORMAL INSPECTION, NORMOCEPHALIC - Eye Exam Eye Exam: EOMI - ENT Exam ENT Exam: Mucous Membranes Moist - Neck Exam Neck Exam: Full ROM, Normal Inspection - Respiratory Exam Respiratory Exam: NORMAL BREATHING PATTERN. absent: Respiratory Distress - Cardiovascular Exam Cardiovascular Exam: +S1, +S2 - GI/Abdominal Exam GI & Abdominal Exam: Soft, Normal Bowel Sounds. absent: Tenderness - Extremities Exam Extremities Exam: absent: Normal Inspection Additional comments: some mild swelling/tenderness left knee - Neurological Exam Neurological Exam: Alert, Awake, Oriented x3 - Psychiatric Exam Psychiatric exam: Normal Affect, Normal Mood - Skin Skin Exam: Dry, Intact, Normal Color, Warm Assessment and Plan - Assessment and Plan (Free Text) Assessment: This is an 82 year old female with past medical hx of HTN, DM, HLD, CHF presenting with 1. Left leg pain -sx consult. Dr. Brown. recs appreciated. -arterial study pending -venous dopplers negative -on lovenox 60 mg q 12 -continue percocet 5/325 1 tab po q 4 hrs prn severe pain -will order lumbar spine MRI without contrast to rule out spinal stenosis as a cause of her sx -will order PT evaluation 2. Hx of coronary artery disease -f/u CT angiogram of abdomen -ASA 325 mg PO daily -Crestor 10 mg PO HS -LDL 46 -HDL 29 3. DM -Accuchecks -ISS -Levemir 20 units SC HS - Glipizide 10mg PO BID -Metformin 1000mg PO BID -will add gabapentin 100 mg PO bid. 4. HTN -Monitor vitals q4h -continue losartan 25 mg po daily 5. Emphysema -continue albuterol -well controlled at this time 6. GI/DVT ppx -Protonix 40mg PO daily -SCD contraindicated due to leg pain -Lovenox 60mg SC q12h discussed with Dr. Zhang
[2017-09-28] MEDS: Enoxaparin 60 mg Syringe SC SCH ×2 (11:53→21:29)
--- NOTE | 2017-09-28 12:18 | VASCLAB ---
STUDY DESCRIPTION: HISTORY: Lower Extremity Ischemia PRIORS: None. TECHNIQUE: Pulse volume recording waveforms and segmental pressures of bilateral lower extremities at multiple levels were obtained. Ankle Brachial Indices (ABIs) were calculated. Report prepared by ARSLAN Diaz RIGHT LOWER EXTREMITY: * Brachial artery: Pressure - 220 mmHg. * High thigh: Pressure - mmHg: Ratio - : PVR waveform - Pulsatile * Low thigh: Pressure - 220 mmHg: Ratio - NC PVR waveform: Reduced * Calf: Pressure - 175 mmHg: Ratio - NC PVR waveform: Reduced * Posterior tibial Artery: Pressure - 203 mmHg: Ratio - NC PVR waveform: Reduced * Dorsalis pedis Artery: Pressure - 185 mmHg: Ratio - NC PVR waveform: Reduced * Great toe: Pressure - mmHg: Ratio - PVR waveform: Ankle brachial index (LOLA): NC LEFT LOWER EXTREMITY: * Brachial artery: Pressure - 220 mmHg. * High thigh: Pressure - mmHg: Ratio - : PVR waveform - Pulsatile * Low thigh: Pressure - 220 mmHg: Ratio - NC PVR waveform: Pulsatile * Calf: Pressure - 220 mmHg: Ratio - NC PVR waveform: Pulsatile * Posterior tibial Artery: Pressure - 220 mmHg: Ratio - NC PVR waveform: Pulsatile * Dorsalis pedis Artery: Pressure - 220 mmHg: Ratio - NC PVR waveform: Pulsatile * Great toe: Pressure - mmHg: Ratio - PVR waveform: Pulsatile Ankle brachial index (LOLA): NC OTHER FINDINGS: Right: Left: IMPRESSION: Right: The ankle pressure index of the right lower extremity are non-diagnostic due to possible arterial wall calcifications. However, pulse volume recording waveforms are suggestive of multi-level arterial diseases from iliac to tibial artery levels. Left: The ankle pressure index of the left lower extremity are non-diagnostic due to possible arterial wall calcifications. However, pulse volume recording waveforms are suggestive of multi-level arterial diseases from superficial femoral to tibial artery levels.
--- NOTE | 2017-09-28 16:07 | MRI ---
PROCEDURE: MR LUMBAR SPINE WITHOUT CONTRAST HISTORY: spinal stenosis COMPARISON: None available. TECHNIQUE: Multiecho multiplanar sequences were performed through the lumbar spine without the use of intravenous contrast. FINDINGS: Normal lumbar lordosis is appreciated. Vertebral body body and disc interspace heights appear within normal limits. Intervertebral discs are diffusely desiccated throughout. No suspicious matter signal changes are identified throughout. A large benign hemangioma occupies the L2 vertebral body however. Prevertebral paraspinal soft tissues appear diffusely unremarkable. The conus medullaris appears normal in intrinsic signal and terminates at the L2 vertebral body level. T12-L1: No disc herniation, spinal canal stenosis or neural foraminal narrowing. L1-2: A limited disc osteophyte complex is appreciated minimally flattening the ventral thecal sac without causing stenosis. No disc herniation, central canal or neural foraminal stenosis is encountered. Mild facet arthropathy is appreciated symmetrically. L2-3: Generalized disc bulging is appreciate without definite disc herniation. Facet arthropathy is [id number] in severity with the bilateral lateral recesses encroached. No significant central stenosis otherwise evident however. There is borderline bilateral neural foraminal stenosis. L3-4: A minimal disc bulge appreciated however facet arthropathy is moderate a causes lateral recess stenosis symmetrically at this level with the remainder of the central canal adequately patent. Asymmetry in the bulge causes a moderate right and borderline left neural foraminal stenosis versus potential small, right foraminal disc herniation. L4-5: An annular tear is seen at the posterior annulus with prominent generalized disc bulging and moderate facet arthropathy resulting in symmetric lateral recess stenosis. The remainder of the central canal is widely patent. Moderate bilateral neural foraminal stenosis identified. No definite disc herniation. L5-S1: A generalized disc bulge encroaches the descending bilateral S1 nerve roots without significant stenosis. [id number] facet arthropathy is encountered symmetrically. No disc herniation. OTHER FINDINGS: None. IMPRESSION: Asymmetric disc bulge or right foraminal disc herniation results in a moderate right neural foraminal stenosis with borderline left neural foraminal stenosis identified at L3-4. Multilevel degenerative lateral recess stenosis or encroachment without generalized central canal stenosis. No severe stenosis or large disc herniation throughout the examination. No fracture or spondylolisthesis.
[2017-09-28] MEDS: Insulin Detemir 100 units/ml Vial (Levemir) SC SCH (21:30)
[2017-09-28] MEDS: Latanoprost 2.5 ml Opht Soln OU SCH (21:35)
[2017-09-29 07:50] LABS: BASO % 0.1 % (0.0-2.0); EOS # 0.8 K/uL (0.0-0.7); EOS % 5.9 % (0.0-4.0); HEMATOCRIT 32.6 % (34.0-47.0); LYMPH % 7.2 % (20.0-40.0); MEAN CELL VOLUME 80.3 fL (81.0-99.0); MEAN CORPUSCULAR HEMOGLOBIN 25.9 pg (27.0-31.0); MEAN CORPUSCULAR HGB CONC 32.2 g/dL (33.0-37.0); MEAN PLATELET VOLUME 8.6 fL (7.2-11.7); MONO # 0.6 K/uL (0.0-0.8); MONO % 4.6 % (0.0-10.0); PLATELET COUNT 247 K/uL (130-400); RED CELL DISTRIBUTION WIDTH 13.4 % (11.5-14.5)
[2017-09-29] MEDS: (Novolin R) Insulin Human Regular 100 units/ml vial SC SCH ×4 (07:58→21:48)
[2017-09-29 08:21] LABS: WHITE BLOOD COUNT 13.7 K/uL (4.8-10.8)
[2017-09-29 08:42] LABS: POTASSIUM 4.4 mmol/L (3.6-5.2)
[2017-09-29 08:44] LABS: ALB/GLOB RATIO 1.4 (1.0-2.1); BILIRUBIN,TOTAL 0.7 mg/dL (0.2-1.3); TOTAL PROTEIN 5.5 g/dL (6.3-8.3)
[2017-09-29 08:45] LABS: CALCIUM 7.8 mg/dl (8.6-10.4); MAGNESIUM 1.1 mg/dL (1.6-2.3); PHOSPHOROUS 3.5 mg/dL (2.5-4.5)
[2017-09-29 09:09] LABS: EOSINOPHIL 8 % (0-4); NEUTROPHIL 84 % (50-75); TOTAL CELLS COUNTED 100
[2017-09-29] MEDS: Pantoprazole 40 mg EC Tab PO SCH (10:20)
[2017-09-29] MEDS: Enoxaparin 60 mg Syringe SC SCH ×2 (10:20→21:49)
--- NOTE | 2017-09-29 11:09 | CP.PCM.PN ---
Subjective - Date & Time of Evaluation Date of Evaluation: 09/29/17 Time of Evaluation: 11:08 - Subjective Subjective: Surgery: Dr. Brown Pt seen and examined. Resting comfortably in bed. No acute events overnight. Objective - Vital Signs/Intake and Output Vital Signs (last 24 hours): Temp Pulse Resp BP Pulse Ox 98.3 F 100 H 20 116/68 96 09/29/17 08:16 09/29/17 08:16 09/29/17 08:16 09/29/17 08:16 09/29/17 08:16 Intake and Output: 09/29/17 09/29/17 06:59 18:59 Intake Total 490 Balance 490 - Medications Medications: Current Medications Albuterol (Ventolin Hfa 90 Mcg/Actuation (8 G)) 2 puff IH RQ6 PRN PRN Reason: sob Aspirin (Aspirin) 325 mg PO DAILY [facility] Last Admin: 09/29/17 10:20 Dose: 325 mg Dextrose (Dextrose 50% Inj) 0 ml IV STAT PRN; Protocol PRN Reason: Hypoglycemia Protocol Dextrose (Glutose 15) 0 gm PO ONCE PRN; Protocol PRN Reason: Hypoglycemia Protocol Enoxaparin Sodium (Lovenox) 60 mg SC Q12 [facility] Last Admin: 09/29/17 10:20 Dose: 60 mg Glipizide (Glucotrol) 10 mg PO BID [facility] Last Admin: 09/29/17 10:20 Dose: 10 mg Dextrose (Dextrose 5% In Water 1000 Ml) 1,000 mls @ 0 mls/hr IV .Q0M PRN; Protocol; Per Protocol PRN Reason: Hypoglycemia Protocol Sodium Chloride (Sodium Chloride 0.9%) 1,000 mls @ 100 mls/hr IV .Q10H [facility] Insulin Detemir (Levemir) 20 unit SC HS [facility] Last Admin: 09/28/17 21:30 Dose: 20 unit Insulin Human Regular (Novolin R) 0 unit SC ACHS [facility] PRN Reason: Protocol Last Admin: 09/29/17 07:58 Dose: Not Given Latanoprost (Xalatan Opht) 0 ml OU HS [facility] Last Admin: 09/28/17 21:35 Dose: 2.5 ml Losartan Potassium (Cozaar) 25 mg PO DAILY [facility] Last Admin: 09/29/17 10:20 Dose: 25 mg Metformin HCl (Glucophage) 1,000 mg PO BID [facility] Last Admin: 09/27/17 09:05 Dose: 1,000 mg Oxycodone/Acetaminophen (Percocet 5/325 Mg Tab) 1 tab PO Q4H PRN PRN Reason: Pain, moderate (4-7) Stop: 09/29/17 22:07 Last Admin: 09/27/17 12:56 Dose: 1 tab Pantoprazole Sodium (Protonix Ec Tab) 40 mg PO DAILY [facility] Last Admin: 09/29/17 10:20 Dose: 40 mg Rosuvastatin Calcium (Crestor) 10 mg PO HS [facility] Last Admin: 09/28/17 21:29 Dose: 10 mg - Labs Labs: 09/29/17 07:38 09/29/17 07:38 PT 10.5 SECONDS (9.7-12.2) 09/26/17 20:40 INR 0.9 09/26/17 20:40 APTT 32 SECONDS (21-34) 09/26/17 20:40 - Constitutional Appears: Non-toxic, No Acute Distress - Head Exam Head Exam: ATRAUMATIC, NORMOCEPHALIC - Eye Exam Eye Exam: EOMI - ENT Exam ENT Exam: Mucous Membranes Moist - Neck Exam Neck Exam: Full ROM - Respiratory Exam Respiratory Exam: NORMAL BREATHING PATTERN. absent: Accessory Muscle Use, Respiratory Distress - GI/Abdominal Exam GI & Abdominal Exam: Soft. absent: Distended, Firm, Guarding, Rigid, Tenderness - Extremities Exam Extremities Exam: absent: Calf Tenderness, Pedal Edema Additional comments: legs warm - Neurological Exam Neurological Exam: Alert, Awake Assessment and Plan - Assessment and Plan (Free Text) Assessment: 82 F with left lower extremity pain. -CTA reviewed and results noted, however given the doppler wave patterns present in PVRs, pt leg pain is less likely to be vascular in origin -No plans for further intervention -pt is clear form surgical standpoint -d/w attending Piero PGY3
--- NOTE | 2017-09-29 11:20 | CP.PCM.PN ---
Subjective - Date & Time of Evaluation Date of Evaluation: 09/29/17 Time of Evaluation: 11:13 - Subjective Subjective: Medicine Progress Note- Dr Zhang's service Patient seen and examined. No acute events overnight. Patient is still experiencing the same leg pain. Denies fever, chest pain and shortness of breath. Objective - Vital Signs/Intake and Output Vital Signs (last 24 hours): Temp Pulse Resp BP Pulse Ox 98.3 F 100 H 20 116/68 96 09/29/17 08:16 09/29/17 08:16 09/29/17 08:16 09/29/17 08:16 09/29/17 08:16 Intake and Output: 09/29/17 09/29/17 06:59 18:59 Intake Total 490 Balance 490 - Medications Medications: Current Medications Albuterol (Ventolin Hfa 90 Mcg/Actuation (8 G)) 2 puff IH RQ6 PRN PRN Reason: sob Aspirin (Aspirin) 325 mg PO DAILY [facility] Last Admin: 09/29/17 10:20 Dose: 325 mg Dextrose (Dextrose 50% Inj) 0 ml IV STAT PRN; Protocol PRN Reason: Hypoglycemia Protocol Dextrose (Glutose 15) 0 gm PO ONCE PRN; Protocol PRN Reason: Hypoglycemia Protocol Enoxaparin Sodium (Lovenox) 60 mg SC Q12 [facility] Last Admin: 09/29/17 10:20 Dose: 60 mg Glipizide (Glucotrol) 10 mg PO BID [facility] Last Admin: 09/29/17 10:20 Dose: 10 mg Dextrose (Dextrose 5% In Water 1000 Ml) 1,000 mls @ 0 mls/hr IV .Q0M PRN; Protocol; Per Protocol PRN Reason: Hypoglycemia Protocol Sodium Chloride (Sodium Chloride 0.9%) 1,000 mls @ 100 mls/hr IV .Q10H [facility] Insulin Detemir (Levemir) 20 unit SC HS [facility] Last Admin: 09/28/17 21:30 Dose: 20 unit Insulin Human Regular (Novolin R) 0 unit SC ACHS [facility] PRN Reason: Protocol Last Admin: 09/29/17 07:58 Dose: Not Given Latanoprost (Xalatan Opht) 0 ml OU HS [facility] Last Admin: 09/28/17 21:35 Dose: 2.5 ml Losartan Potassium (Cozaar) 25 mg PO DAILY [facility] Last Admin: 09/29/17 10:20 Dose: 25 mg Metformin HCl (Glucophage) 1,000 mg PO BID [facility] Last Admin: 09/27/17 09:05 Dose: 1,000 mg Oxycodone/Acetaminophen (Percocet 5/325 Mg Tab) 1 tab PO Q4H PRN PRN Reason: Pain, moderate (4-7) Stop: 09/29/17 22:07 Last Admin: 09/27/17 12:56 Dose: 1 tab Pantoprazole Sodium (Protonix Ec Tab) 40 mg PO DAILY [facility] Last Admin: 09/29/17 10:20 Dose: 40 mg Rosuvastatin Calcium (Crestor) 10 mg PO HS [facility] Last Admin: 09/28/17 21:29 Dose: 10 mg - Labs Labs: 09/29/17 07:38 09/29/17 07:38 PT 10.5 SECONDS (9.7-12.2) 09/26/17 20:40 INR 0.9 09/26/17 20:40 APTT 32 SECONDS (21-34) 09/26/17 20:40 - Additional Findings Additional findings: - Constitutional Appears: Non-toxic, No Acute Distress - Head Exam Head Exam: ATRAUMATIC, NORMOCEPHALIC - Eye Exam Eye Exam: EOMI, Normal appearance, PERRL Pupil Exam: NORMAL ACCOMODATION - ENT Exam ENT Exam: Mucous Membranes Moist, Normal Exam - Neck Exam Neck Exam: Normal Inspection - Respiratory Exam Respiratory Exam: Clear to Ausculation Bilateral, NORMAL BREATHING PATTERN. absent: Rhonchi, Wheezes, Respiratory Distress - Cardiovascular Exam Cardiovascular Exam: REGULAR RHYTHM, +S1, +S2 - GI/Abdominal Exam GI & Abdominal Exam: Soft, Normal Bowel Sounds. absent: Firm, Guarding, Tenderness - Extremities Exam Extremities Exam: Normal Inspection (Right leg ) Additional comments: Left leg- non-pitting edema to knee, soft tissue swelling and tenderness to palpation of anterior knee - Neurological Exam Neurological Exam: Alert, Awake, CN II-XII Intact, Oriented x3 Additional comments: Unsteady gait with cane - Psychiatric Exam Psychiatric exam: Normal Affect, Normal Mood - Skin Skin Exam: Dry, Intact, Normal Color, Warm Assessment and Plan - Assessment and Plan (Free Text) Assessment: 1. Left leg pain -sx consult. Dr. Brown. recs appreciated. 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 Acute Kidney Injury -BUN/Cr increased to 38/2.2 -No history of kidney disease -Stopped Gabapentin as it can be nephrotoxic -Start IVF NS @100cc/hr -Monitor BMP 3. Leukocytosis -WBC 13.7 with left shift, afebrile -Blood culture negative on 09/27 -f/u repeat US and urine C&S 4. Hx of coronary artery disease -CT angiogram of abdomen: occlusion of tibial artery, stenosis of bilateral SFA , stenosis of bilateral popliteal arteries -ASA 325 mg PO daily -Crestor 10 mg PO HS -LDL 46 -HDL 29 5. DM -HgA1C 8.5 -Accuchecks -ISS -Levemir 20 units SC HS -Glipizide 10mg PO BID -Metformin 1000mg PO BID (held) 6. HTN -Monitor vitals q4h -continue losartan 25 mg po daily 7. Emphysema -continue albuterol -well controlled at this time 8. GI/DVT ppx -Protonix 40mg PO daily -SCD contraindicated due to leg pain -Lovenox 60mg SC q12h discussed with Dr. Zhang
[2017-09-29] MEDS: Sodium Chloride 0.9% 1,000 ML IV SCH ×2 (11:34→20:30)
[2017-09-29] MEDS: Oxycodone/Acetaminophen 5/325 mg Tab PO PRN (13:06)
[2017-09-29 17:17] LABS: POTASSIUM 4.6 mmol/L (3.6-5.2)
[2017-09-29 17:21] LABS: CALCIUM 7.6 mg/dl (8.6-10.4)
[2017-09-29] MEDS: Latanoprost 2.5 ml Opht Soln OU SCH (21:49)
[2017-09-29] MEDS: Insulin Detemir 100 units/ml Vial (Levemir) SC SCH (21:49)
[2017-09-29 22:40] LABS: RBC URINE 7 /hpf (0-3); TRANSITIONAL EPITHIAL 1 /hpf (0-3); URINE BACTERIA MANY (<OCC); URINE BILIRUBIN NEGATIVE (NEGATIVE); URINE COLOR Amber (YELLOW); URINE GLUCOSE (UA) 1+ mg/dL (Normal); URINE HYALINE CAST >20 /lpf (0-2); URINE KETONE NEGATIVE (NEGATIVE); URINE PROTEIN 2+ mg/dL (NEGATIVE); URINE UROBILINOGEN NORMAL mg/dL (0.2-1.0); WBC URINE 20 /hpf (0-5)
[2017-09-29 22:41] LABS: URINE BLOOD 1+ (NEGATIVE); URINE LEUKOCYTE ESTERASE 2+ Leu/uL (Negative)
[2017-09-30] MEDS: Sodium Chloride 0.9% 1,000 ML IV SCH ×2 (05:00→17:43)
[2017-09-30] MEDS: Albuterol HFA 90 mcg/actuation (8 g) IH PRN (07:40)
[2017-09-30] MEDS: (Novolin R) Insulin Human Regular 100 units/ml vial SC SCH ×4 (08:30→21:49)
[2017-09-30] MEDS: Pantoprazole 40 mg EC Tab PO SCH (10:41)
[2017-09-30] MEDS: Enoxaparin 60 mg Syringe SC SCH ×2 (10:41→22:25)
--- NOTE | 2017-09-30 13:11 | CARD ---
APPROVED REPORT EKG Measurement Heart [id number] <Conclusion> nsr Rightward axis Nonspecific ST abnormality Abnormal ECG
[2017-09-30] MEDS ORDERED: DiphenhydrAMINE 50 mg/ml Inj IVP ONE (18:30)
[2017-09-30] MEDS: Latanoprost 2.5 ml Opht Soln OU SCH (22:25)
[2017-09-30] MEDS: Insulin Detemir 100 units/ml Vial (Levemir) SC SCH (22:25)
[2017-10-01] MEDS: Sodium Chloride 0.9% 1,000 ML IV SCH ×2 (01:30→12:38)
[2017-10-01] MEDS ORDERED: DiphenhydrAMINE 50 mg/ml Inj IVP STA (02:01)
[2017-10-01] MEDS: (Novolin R) Insulin Human Regular 100 units/ml vial SC SCH ×4 (08:10→21:33)
[2017-10-01] MEDS: Pantoprazole 40 mg EC Tab PO SCH (10:45)
[2017-10-01] MEDS: Enoxaparin 60 mg Syringe SC SCH ×2 (10:46→21:23)
[2017-10-01 11:58] LABS: POTASSIUM 6.3 mmol/L (3.6-5.2)
[2017-10-01 11:59] LABS: CALCIUM 7.7 mg/dl (8.6-10.4)
[2017-10-01 15:55] LABS: POTASSIUM 4.4 mmol/L (3.6-5.2)
[2017-10-01 15:59] LABS: CALCIUM 7.8 mg/dl (8.6-10.4)
--- NOTE | 2017-10-01 20:31 | CP.PCM.CON ---
History of Present Illness - History of Present Illness History of Present Illness: renal consult note 82 year old [place] female with DM, HTN, HLD is admitted wit bilateral leg pain for 2 weeks. assoc with walking. i have been consulted for abnormal renal function. the hx is obtained from christofer son. no prior known hx of ckd. no nsaids use no kidney stones. her renal function was normal on admission and she underwent contrast iv study on 09/27 and on 09/29 her cr bumped. no changes in urine output. she is on arb, same dose as home med she was on. PMHx: DM, HTN, HLD per son and records SurgHx: none Allergies: none FamilyHx: 3 children with DM SocialHx: lives with son; denies tobacco/alcohol/illicit drug use PE: Vitals reviewed heent normal op moist no jvd s1s2 present no resp distress abd soft skin normal legs: erythema + b/l ao times 3 A&P: EDMUNDO/DM/HTN/PVD/CAD edmundo likely sec to contrast induced nephropathy. she may have underlyign mild ckd sec to dm, as UA is positive for protein the kidneys were unremarkable on ct angio lytes ok bp continue current meds continue arb, as she is on home dose and the renal function was normal before, hence unlikely to be due to ARB use PVD: management per vascular surgery team thank you for the consult will continue to follow please call @ [phone] if any qs Past Patient History - Past Medical History & Family History Past Medical History?: Yes - Past Social History Smoking Status: Never Smoked - CARDIAC Hx Cardiac Disorders: Yes Hx Congestive Heart Failure: Yes Hx Hypercholesterolemia: Yes Hx Hypertension: Yes - PULMONARY Hx Respiratory Disorders: Yes Hx Emphysema: Yes - NEUROLOGICAL Hx Neurological Disorder: No - HEENT Hx HEENT Problems: Yes Hx Cataracts: Yes (had surgery) - RENAL Hx Chronic Kidney Disease: No - ENDOCRINE/METABOLIC Hx Endocrine Disorders: Yes Hx Diabetes Mellitus Type 2: Yes - HEMATOLOGICAL/ONCOLOGICAL Hx Blood Disorders: No - INTEGUMENTARY Hx Dermatological Problems: No - MUSCULOSKELETAL/RHEUMATOLOGICAL Hx Musculoskeletal Disorders: No Hx Falls: No - GASTROINTESTINAL Hx Gastrointestinal Disorders: No - GENITOURINARY/GYNECOLOGICAL Hx Genitourinary Disorders: No - PSYCHIATRIC Hx Psychophysiologic Disorder: No Hx Substance Use: No - SURGICAL HISTORY Hx Surgeries: Yes Other/Comment: cataract surgery - ANESTHESIA Hx Anesthesia: Yes Hx Anesthesia Reactions: No Hx Malignant Hyperthermia: No Meds Allergies/Adverse Reactions: Allergies Allergy/AdvReac Type Severity Reaction Status Date / Time No Known Allergies Allergy Verified 09/26/17 19:48 - Medications Medications: Current Medications Albuterol (Ventolin Hfa 90 Mcg/Actuation (8 G)) 2 puff IH RQ6 PRN PRN Reason: sob Last Admin: 09/30/17 07:40 Dose: 2 puff Aspirin (Aspirin) 325 mg PO DAILY [facility] Last Admin: 10/01/17 10:45 Dose: 325 mg Dextrose (Dextrose 50% Inj) 0 ml IV STAT PRN; Protocol PRN Reason: Hypoglycemia Protocol Dextrose (Glutose 15) 0 gm PO ONCE PRN; Protocol PRN Reason: Hypoglycemia Protocol Diphenhydramine HCl (Benadryl) 25 mg PO Q6 PRN PRN Reason: itchy Last Admin: 10/01/17 13:20 Dose: 25 mg Enoxaparin Sodium (Lovenox) 60 mg SC Q12 [facility] Last Admin: 10/01/17 10:46 Dose: 60 mg Glipizide (Glucotrol) 10 mg PO BID [facility] Last Admin: 10/01/17 17:57 Dose: 10 mg Insulin Detemir (Levemir) 20 unit SC HS [facility] Last Admin: 09/30/17 22:25 Dose: 20 unit Insulin Human Regular (Novolin R) 0 unit SC ACHS [facility] PRN Reason: Protocol Last Admin: 10/01/17 17:58 Dose: Not Given Latanoprost (Xalatan Opht) 0 ml OU HS [facility] Last Admin: 09/30/17 22:25 Dose: 2.5 ml Losartan Potassium (Cozaar) 25 mg PO DAILY [facility] Last Admin: 10/01/17 10:45 Dose: 25 mg Pantoprazole Sodium (Protonix Ec Tab) 40 mg PO DAILY [facility] Last Admin: 10/01/17 10:45 Dose: 40 mg Rosuvastatin Calcium (Crestor) 10 mg PO HS [facility] Last Admin: 09/30/17 22:25 Dose: 10 mg Results - Vital Signs Recent Vital Signs: Last Vital Signs Temp 98.2 F 10/01/17 15:40 Pulse 86 10/01/17 17:15 Resp 20 10/01/17 15:40 BP 158/75 H 10/01/17 15:40 Pulse Ox 100 10/01/17 15:40 - Labs Result Diagrams: 09/29/17 07:38 10/01/17 13:30 Labs: Laboratory Results - last 24 hr 09/30/17 10/01/17 10/01/17 20:53 06:42 11:29 Sodium 132 Potassium 6.3 H* D Chloride 104 Carbon Dioxide 19 L Anion Gap 15 BUN 31 H Creatinine 1.3 H Est GFR ( Amer) 47 Est GFR (Non-Af Amer) 39 POC Glucose (mg/dL) 259 H 192 H Random Glucose 195 H Calcium 7.7 L 10/01/17 10/01/17 10/01/17 11:33 13:30 16:47 Sodium 133 Potassium 4.4 Chloride 103 Carbon Dioxide 21 L Anion Gap 13 BUN 28 H Creatinine 1.4 H Est GFR ( Amer) 43 Est GFR (Non-Af Amer) 36 POC Glucose (mg/dL) 235 H 303 H Random Glucose 269 H Calcium 7.8 L
[2017-10-01] MEDS: Latanoprost 2.5 ml Opht Soln OU SCH ×2 (21:25→21:39)
[2017-10-01] MEDS: Insulin Detemir 100 units/ml Vial (Levemir) SC SCH (21:35)
[2017-10-02] MEDS: Albuterol HFA 90 mcg/actuation (8 g) IH PRN (08:22)
[2017-10-02] MEDS: (Novolin R) Insulin Human Regular 100 units/ml vial SC SCH (08:39)
[2017-10-02 09:20] VITALS: BP 147/65; RESP 18; TEMP 98.6; O2SAT 96
[2017-10-02] MEDS: Enoxaparin 60 mg Syringe SC SCH (10:34)
[2017-10-02] MEDS: Pantoprazole 40 mg EC Tab PO SCH (10:34)
[2017-10-02 11:38] LABS: BASO % 0.2 % (0.0-2.0); EOS # 0.9 K/uL (0.0-0.7); EOS % 9.6 % (0.0-4.0); HEMATOCRIT 29.6 % (34.0-47.0); LYMPH % 10.9 % (20.0-40.0); MEAN CELL VOLUME 80.9 fL (81.0-99.0); MEAN CORPUSCULAR HEMOGLOBIN 26.5 pg (27.0-31.0); MEAN CORPUSCULAR HGB CONC 32.7 g/dL (33.0-37.0); MEAN PLATELET VOLUME 8.8 fL (7.2-11.7); MONO % 10.8 % (0.0-10.0); RED CELL DISTRIBUTION WIDTH 13.4 % (11.5-14.5); WHITE BLOOD COUNT 9.5 K/uL (4.8-10.8)
[2017-10-02 11:57] LABS: BILIRUBIN,TOTAL 0.3 mg/dL (0.2-1.3)
[2017-10-02 11:58] LABS: ALB/GLOB RATIO 0.9 (1.0-2.1); PHOSPHOROUS 2.8 mg/dL (2.5-4.5); TOTAL PROTEIN 6.4 g/dL (6.3-8.3)
[2017-10-02 11:59] LABS: CALCIUM 7.8 mg/dl (8.6-10.4); MAGNESIUM 1.2 mg/dL (1.6-2.3)
[2017-10-02 12:00] VITALS: PULSE 89
--- NOTE | 2017-10-02 15:40 | CP.PCM.PN ---
Subjective - Date & Time of Evaluation Date of Evaluation: 10/02/17 Time of Evaluation: 14:30 - Subjective Subjective: Follow up Nephrology Consultation Note Assessment: Stable Acute Kidney Injury (N17.9) likely due to contrast nephropathy: improved Diabetic chronic Kidney Disease (E11.22) Hypertensive Chronic Kidney Disease (I12.9) Chronic Kidney Disease (N18.3) Stage 3 with 2+ dipstick proteinuria (R80.9) likely due to DM Anemia (D64.9) HTN (I12.9) PVD Plan No acute need for renal replacement therapy at this time. renal function better Hypertension control with meds as ordered. Dose meds/antibiotics for improved GFR. Avoid fleets enema/magnesium based laxatives. Avoid nephrotoxins/NSAIDs/ iodinated contrast (unless needed emergently) Glycemic control Further work up for as per primary team pt planned for d/c home today. Thanks for allowing me to participate in care of your patient. Please call if any Qs. f/up in office 1 week. d/w son Dr Tony Callejas Office: [phone] Subjective: Noted events overnight. Patients feels okay. Denies chest pain, palpitation, shortness of breath, c/o leg swelling. No urinary complaints son bedside who also helped in albanian interpretation Physical Examination: General Appearance: Comfortable, in no acute respiratory distress, co- operative. Vitals reviewed and noted as below Lungs: Normal respiratory rate/effort. Breath sounds bilateral equal and clear Heart: Normal rate. s1s2 normal. No rub or gallop. Extremities: L>R 1-2+ edema. Neurological: Patient is alert, awake and oriented to person, place and time. No focal deficit. Strength bilateral appropriate and equal Skin: Warm and dry. Normal turgor. No rash. Palpitation: Normal elasticity for age Abdomen: Abdomen is soft. Bowel sounds +. There is no abdominal tenderness, no guarding/rigidity or organomegaly : kidney or bladder not palpable Labs/imaging reviewed. Past medical history, past surgical history, family history, social history, allergy reviewed Objective - Vital Signs/Intake and Output Vital Signs (last 24 hours): Temp Pulse Resp BP Pulse Ox 98.6 F 89 18 147/65 96 10/02/17 07:50 10/02/17 11:51 10/02/17 07:50 10/02/17 07:50 10/02/17 07:50 Intake and Output: 10/02/17 10/02/17 06:59 18:59 Intake Total 240 Balance 240 - Labs Labs: 10/02/17 11:32 10/02/17 11:32 PT 10.5 SECONDS (9.7-12.2) 09/26/17 20:40 INR 0.9 09/26/17 20:40 APTT 32 SECONDS (21-34) 09/26/17 20:40
--- NOTE | 2017-10-02 16:22 | CP.PCM.PN ---
Subjective - Date & Time of Evaluation Date of Evaluation: 10/02/17 Time of Evaluation: 16:20 - Subjective Subjective: Progress note. Attending: Dr. Zaidi Pt seen and examined at bedside. No acute distress. No events overnight. No fevers, chills, vomiting, diarrhea. DC today Objective - Vital Signs/Intake and Output Vital Signs (last 24 hours): Temp Pulse Resp BP Pulse Ox 98.6 F 89 18 147/65 96 10/02/17 07:50 10/02/17 11:51 10/02/17 07:50 10/02/17 07:50 10/02/17 07:50 Intake and Output: 10/02/17 10/02/17 06:59 18:59 Intake Total 240 Balance 240 - Labs Labs: 10/02/17 11:32 10/02/17 11:32 PT 10.5 SECONDS (9.7-12.2) 09/26/17 20:40 INR 0.9 09/26/17 20:40 APTT 32 SECONDS (21-34) 09/26/17 20:40 - Constitutional Appears: Non-toxic, No Acute Distress - Head Exam Head Exam: ATRAUMATIC, NORMAL INSPECTION, NORMOCEPHALIC - Eye Exam Eye Exam: EOMI - ENT Exam ENT Exam: Mucous Membranes Moist - Neck Exam Neck Exam: Full ROM - Respiratory Exam Respiratory Exam: NORMAL BREATHING PATTERN. absent: Respiratory Distress - Cardiovascular Exam Cardiovascular Exam: +S1, +S2 - GI/Abdominal Exam GI & Abdominal Exam: Soft, Normal Bowel Sounds. absent: Tenderness - Extremities Exam Extremities Exam: Full ROM, Normal Inspection - Neurological Exam Neurological Exam: Alert, Awake, Oriented x3 - Psychiatric Exam Psychiatric exam: Normal Affect, Normal Mood - Skin Skin Exam: Dry, Intact, Normal Color, Warm Assessment and Plan - Assessment and Plan (Free Text) Assessment: This is an 82 yo female with 1. Left leg pain -sx consult. Dr. Brown. recs appreciated. 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 Acute Kidney Injury -BUN/Cr increased to 38/2.2 -No history of kidney disease -likely contrast induced -Stopped Gabapentin as it can be nephrotoxic -Start IVF NS @100cc/hr -Monitor BMP 3. Leukocytosis -WBC 13.7 with left shift, afebrile -Blood culture negative on 09/27 -urine culture shows possible contamination 4. Hx of coronary artery disease -CT angiogram of abdomen: occlusion of tibial artery, stenosis of bilateral SFA , stenosis of bilateral popliteal arteries -ASA 325 mg PO daily -Crestor 10 mg PO HS -LDL 46 -HDL 29 5. DM -HgA1C 8.5 -Accuchecks -ISS -Levemir 20 units SC HS -Glipizide 10mg PO BID -Metformin 1000mg PO BID (held) 6. HTN -Monitor vitals q 4 hours -continue losartan 25 mg po daily 7. Emphysema -continue albuterol -well controlled at this time 8. GI/DVT ppx -Protonix 40 mg PO daily -SCD contraindicated due to leg pain -Lovenox 60 mg SC q12h discussed with Dr. Zhang
== END 2017-10-02 15:01 | disposition home or self-care (01) | DRG 300 ==
LOC: C.ER 19:20 → C.9E 22:03 → C.6T 22:43
PROVIDERS: ADMIT Internal Medicine Pulmonary Disease; ATTEND Internal Medicine Pulmonary Disease
DX: E11.51 Type 2 diabetes mellitus with diabetic peripheral angiopathy without gangrene (principal); I13.0 Hypertensive heart and chronic kidney disease with heart failure and stage 1 through stage 4 chronic kidney disease, or unspecified chronic kidney disease; N17.9 Acute kidney failure, unspecified; E11.22 Type 2 diabetes mellitus with diabetic chronic kidney disease; E11.65 Type 2 diabetes mellitus with hyperglycemia; I50.9 Heart failure, unspecified; E78.00 Pure hypercholesterolemia, unspecified; D72.829 Elevated white blood cell count, unspecified; D64.9 Anemia, unspecified; I25.10 Atherosclerotic heart disease of native coronary artery without angina pectoris; J43.9 Emphysema, unspecified; N14.1 Nephropathy induced by other drugs, medicaments and biological substances; N18.3 Chronic kidney disease, stage 3 (moderate); E78.5 Hyperlipidemia, unspecified; T50.8X5A Adverse effect of diagnostic agents, initial encounter; Z79.4 Long term (current) use of insulin; Z79.82 Long term (current) use of aspirin; Z79.899 Other long term (current) drug therapy; Z90.49 Acquired absence of other specified parts of digestive tract